=== PATIENT | male | born 1955 | race Caucasian/White ===

== ENCOUNTER 2020-06-06 11:51 | Emergency (ER) | payer OTHER ==
[~2020-06-06] VITALS: Ht 180.3 cm; Wt 79.4 kg
[2020-06-06 15:03] VITALS: BP 152/100
== END 2020-06-06 15:14 | disposition home or self-care (01) ==
LOC: ER 11:51 → EDBD 11:51 → ER 15:14
DX: S16.1XXA Strain of muscle, fascia and tendon at neck level, initial encounter (principal); S40.021A Contusion of right upper arm, initial encounter; F17.210 Nicotine dependence, cigarettes, uncomplicated; M50.321 Other cervical disc degeneration at C4-C5 level; V43.52XA Car driver injured in collision with other type car in traffic accident, initial encounter; Y93.89 Activity, other specified; Y92.488 Other paved roadways as the place of occurrence of the external cause; Y99.8 Other external cause status
CPT/HCPCS: 72040; 73080

== ENCOUNTER 2021-12-11 19:54 | Inpatient (IN) | payer MEDICARE ==
[~2021-12-11] VITALS: Ht 172.7 cm; Wt 67.1 kg
[2021-12-11] MEDS ORDERED: NITROGLYCERIN 0.4 MG SL TAB SL PRN (21:30)
[2021-12-11] MEDS ORDERED: MORPHINE SULFATE INJ 2 MG/ml SYRG IV PRN (21:30)
[2021-12-11] MEDS ORDERED: SOD CHL 0.45% 1,000 ML IV SCH (21:45)
[2021-12-11] MEDS ORDERED: KETOROLAC TROMETH 30 MG/ML 1ML VIAL IV ONE (22:15)
[2021-12-11] MEDS: KETOROLAC TROMETH 30 MG/ML 1ML VIAL IV SCH (22:15)
[2021-12-11] MEDS ORDERED: VANCOMYCIN PER PHARMACY 0 MG IV SCH (22:15)
[2021-12-11] MEDS: SOD CHL 0.45% 1,000 ML IV SCH (22:15)
[2021-12-11] MEDS ORDERED: HYDROmorphone HCL 2 MG/ML VL/or syr IV PRN (22:15)
[2021-12-11 22:39] LABS: Basophils # (auto) 0.1 10 ^3/uL (0-0.2); Basophils % (auto) 0.6 % (0.0-2.0); Eosinophils # (auto) 0.2 10 ^3/uL (0-0.8); Eosinophils % (auto) 1.7 % (0.0-7.0); Hemoglobin 12.4 g/dL (13.5-17.5); Lymphocytes # (auto) 1.8 10 ^3/uL (0.4-5.4); Mean Corpuscular Hemoglobin 29.5 pg (28.0-32.0); Mean Corpuscular Hgb Conc. 33.4 g/dL (32.0-36.0); Mean Corpuscular Volume 88.3 fL (80.0-100.0); Monocytes # (auto) 0.7 10 ^3/uL (0-1.3); Monocytes % (auto) 8.1 % (0.0-12.0); Neutrophils # (auto) 6.2 10 ^3/uL (1.6-8.6); Neutrophils % (auto) 69.6 % (37.0-80.0); Red Blood Cells 4.19 10^6/uL (4.5-5.90); Red Cell Distribution Width 13.4 % (11.8-14.3)
[2021-12-11] MEDS ORDERED: VANCOMYCIN 1GM/250ML 250 ML IV ONE (22:45)
[2021-12-11 22:52] LABS: INR 0.97 (0.9-1.15); Partial Thromboplastin Time 28.5 sec (24.6-33.4)
[2021-12-11] MEDS ORDERED: ROSU1TAB15 PO (22:57)
[2021-12-11] MEDS ORDERED: TRAZ50TA2 PO (22:57)
[2021-12-11] MEDS ORDERED: ALBU108A5 PO (22:57)
[2021-12-11] MEDS ORDERED: SILV1CRE82 (22:57)
[2021-12-11] MEDS ORDERED: LISI-275 PO (22:57)
[2021-12-11] MEDS ORDERED: MELO1TAB56 PO (22:57)
[2021-12-11] MEDS ORDERED: BUPR-60 PO (22:57)
[2021-12-11] MEDS ORDERED: FOLI1TAB6 PO (22:57)
[2021-12-11] MEDS ORDERED: ASPI-325 PO (22:57)
[2021-12-11] MEDS ORDERED: DIAZ5TAB PO (22:57)
[2021-12-11] MEDS ORDERED: HYDR2TAB2 PO (22:57)
[2021-12-11 22:58] LABS: Albumin 3.1 g/dL (3.4-5.0); Calcium 8.4 mg/dL (8.5-10.1); Potassium 4.4 mmol/L (3.5-5.1)
[2021-12-11 23:07] LABS: BUN/Creatinine Ratio 16.4; Bilirubin, Total 0.3 mg/dL (0.2-1.0); CRP High Sensitivity 4.12 mg/dL (< 0.3); Total Protein 6.5 g/dL (6.4-8.2)
[2021-12-11] MEDS ORDERED: ALBUTEROL SULF HFA 90MCG INH 200DOSE IN PRN (23:30)
[2021-12-12] MEDS ORDERED: ALBUTEROL SULF 2.5 MG/0.5ML(0.5%) NEB SOLN NEB PRN (02:15)
[2021-12-12 05:00] VITALS: BP 99/61
[2021-12-12] MEDS: KETOROLAC TROMETH 30 MG/ML 1ML VIAL IV SCH ×4 (05:41→22:15)
[2021-12-12 07:06] LABS: Urine Bacteria NONE SEEN /hpf (None Seen); Urine Blood Negative /uL (Negative); Urine Hyaline Cast FEW /lpf (0 - 2); Urine Mucus FEW (None Seen); Urine Specific Gravity 1.038 (1.001-1.035); Urine WBC 3 /hpf (0 - 3)
[2021-12-12] MEDS: ASPirin-EC 81 mg tab PO SCH (09:40)
[2021-12-12] MEDS: diazePAM 5 MG TAB PO SCH ×2 (09:40→21:15)
[2021-12-12] MEDS: LISINOPRIL 10 MG TAB PO SCH (09:40)
[2021-12-12] MEDS ORDERED: BUPROPION HCL SR 150 MG TABLET PO SCH (10:00)
[2021-12-12 10:25] LABS: Albumin 2.8 g/dL (3.4-5.0); BUN/Creatinine Ratio 18.3; Calcium 8.5 mg/dL (8.5-10.1); Potassium 4.5 mmol/L (3.5-5.1)
[2021-12-12 13:09] VITALS: BP 116/79
[2021-12-12] MEDS: SOD CHL 0.45% 1,000 ML IV SCH ×2 (15:12→17:46)
[2021-12-12 17:00] VITALS: BP 111/66
[2021-12-12] MEDS: VANCOMYCIN 1GM/250ML 250 ML IV SCH (17:07)
[2021-12-12] MEDS: traZODone HCL 50 MG TAB PO SCH (21:14)
[2021-12-12 22:00] VITALS: BP 112/46
[2021-12-13] MEDS: KETOROLAC TROMETH 30 MG/ML 1ML VIAL IV SCH ×4 (04:16→22:28)
[2021-12-13 05:00] VITALS: BP 144/78
[2021-12-13 09:00] VITALS: BP 112/68
[2021-12-13] MEDS: diazePAM 5 MG TAB PO SCH ×2 (09:53→22:25)
[2021-12-13] MEDS: ASPirin-EC 81 mg tab PO SCH (09:53)
[2021-12-13] MEDS: LISINOPRIL 10 MG TAB PO SCH (09:54)
[2021-12-13] MEDS: buPROPion HCL 75 MG TAB PO SCH ×2 (10:30→18:46)
[2021-12-13] MEDS: VANCOMYCIN 1GM/250ML 250 ML IV SCH (12:36)
[2021-12-13 13:00] VITALS: BP 115/56
[2021-12-13] MEDS: SOD CHL 0.45% 1,000 ML IV SCH (14:15)
[2021-12-13 17:00] VITALS: BP 115/61
[2021-12-13 22:00] VITALS: BP 104/54
[2021-12-13] MEDS: traZODone HCL 50 MG TAB PO SCH (22:25)
[2021-12-14 05:00] VITALS: BP 138/80
[2021-12-14 05:19] LABS: Basophils # (auto) 0 10 ^3/uL (0-0.2); Basophils % (auto) 0.3 % (0.0-2.0); Eosinophils # (auto) 0.1 10 ^3/uL (0-0.8); Eosinophils % (auto) 1.9 % (0.0-7.0); Hematocrit 31.8 % (41.0-53.0); Hemoglobin 10.6 g/dL (13.5-17.5); Lymphocytes # (auto) 1.5 10 ^3/uL (0.4-5.4); Lymphocytes % (auto) 19.1 % (10.0-50.0); Mean Corpuscular Hgb Conc. 33.4 g/dL (32.0-36.0); Mean Corpuscular Volume 89.6 fL (80.0-100.0); Monocytes # (auto) 0.6 10 ^3/uL (0-1.3); Monocytes % (auto) 7.8 % (0.0-12.0); Neutrophils # (auto) 5.5 10 ^3/uL (1.6-8.6); Neutrophils % (auto) 70.9 % (37.0-80.0); Red Blood Cells 3.55 10^6/uL (4.5-5.90); White Blood Cell 7.8 10^3/uL (4.4-10.8)
[2021-12-14 05:26] LABS: Potassium 4.6 mmol/L (3.5-5.1)
[2021-12-14 05:34] LABS: Albumin 2.6 g/dL (3.4-5.0); Bilirubin, Total 0.3 mg/dL (0.2-1.0); Calcium 8.1 mg/dL (8.5-10.1); Total Protein 5.5 g/dL (6.4-8.2)
[2021-12-14] MEDS: KETOROLAC TROMETH 30 MG/ML 1ML VIAL IV SCH ×4 (05:59→21:24)
[2021-12-14] MEDS: VANCOMYCIN 1GM/250ML 250 ML IV SCH ×2 (06:06→21:36)
[2021-12-14] MEDS: SOD CHL 0.45% 1,000 ML IV SCH ×2 (06:30→16:58)
[2021-12-14] MEDS: buPROPion HCL 75 MG TAB PO SCH ×2 (07:04→18:35)
[2021-12-14 08:32] VITALS: BP 120/69
[2021-12-14] MEDS: ASPirin-EC 81 mg tab PO SCH (09:46)
[2021-12-14] MEDS: diazePAM 5 MG TAB PO SCH ×2 (09:46→21:20)
[2021-12-14] MEDS: LISINOPRIL 10 MG TAB PO SCH (09:47)
[2021-12-14] MEDS ORDERED: PANTOPRAZOLE 40 MG/10 ML VIAL INJ IV STA (13:41)
[2021-12-14] MEDS ORDERED: ONDANSETRON HCL 4 MG/2 ML VIAL IV PRN (13:45)
[2021-12-14] MEDS ORDERED: ALUM & MAG HYDROX-SIMETH LIQ(MAALOX) 30 ML GT PRN (13:45)
[2021-12-14 14:06] VITALS: BP 117/72
[2021-12-14 16:38] VITALS: BP 134/81
[2021-12-14] MEDS: traZODone HCL 50 MG TAB PO SCH (21:19)
[2021-12-14] MEDS: PANTOPRAZOLE 40 MG/10 ML VIAL INJ IV SCH (21:25)
[2021-12-14 22:00] VITALS: BP 93/54
[2021-12-15] VITALS (7 sets, daily range): BP systolic 93–126; BP diastolic 54–77
[2021-12-15] MEDS: KETOROLAC TROMETH 30 MG/ML 1ML VIAL IV SCH ×4 (04:14→21:40)
[2021-12-15 05:34] LABS: Basophils # (auto) 0 10 ^3/uL (0-0.2); Basophils % (auto) 0.7 % (0.0-2.0); Eosinophils # (auto) 0.1 10 ^3/uL (0-0.8); Eosinophils % (auto) 2.3 % (0.0-7.0); Hematocrit 28.4 % (41.0-53.0); Hemoglobin 9.7 g/dL (13.5-17.5); Lymphocytes # (auto) 1.6 10 ^3/uL (0.4-5.4); Lymphocytes % (auto) 25.6 % (10.0-50.0); Mean Corpuscular Hemoglobin 30.2 pg (28.0-32.0); Mean Corpuscular Hgb Conc. 34.1 g/dL (32.0-36.0); Mean Corpuscular Volume 88.6 fL (80.0-100.0); Monocytes # (auto) 0.5 10 ^3/uL (0-1.3); Monocytes % (auto) 8.7 % (0.0-12.0); Neutrophils # (auto) 3.8 10 ^3/uL (1.6-8.6); Neutrophils % (auto) 62.7 % (37.0-80.0); Red Blood Cells 3.21 10^6/uL (4.5-5.90); White Blood Cell 6.1 10^3/uL (4.4-10.8)
[2021-12-15] MEDS: buPROPion HCL 75 MG TAB PO SCH ×2 (06:56→18:34)
[2021-12-15 07:58] LABS: Albumin 2.8 g/dL (3.4-5.0); Calcium 8.1 mg/dL (8.5-10.1); Potassium 4.7 mmol/L (3.5-5.1)
[2021-12-15 08:01] LABS: BUN/Creatinine Ratio 18.4; Bilirubin, Total 0.3 mg/dL (0.2-1.0); Total Protein 5.6 g/dL (6.4-8.2)
[2021-12-15] MEDS: SOD CHL 0.45% 1,000 ML IV SCH ×2 (08:09→18:34)
[2021-12-15] MEDS: PANTOPRAZOLE 40 MG/10 ML VIAL INJ IV SCH ×2 (09:33→21:37)
[2021-12-15] MEDS: diazePAM 5 MG TAB PO SCH ×2 (09:33→21:39)
[2021-12-15] MEDS: ASPirin-EC 81 mg tab PO SCH (09:33)
[2021-12-15] MEDS: CEFTRIAXONE SODIUM 2 GM in D5W 5% 50 ML IV SCH (09:33)
[2021-12-15] MEDS: LISINOPRIL 10 MG TAB PO SCH (09:34)
[2021-12-15] MEDS ORDERED: MIDAZOLAM HCL 2MG/2ML 2ml VIAL (1mg/ml) ONE (09:51)
[2021-12-15] MEDS ORDERED: MEPERIDINE HCL (25 MG/ML) 1ML VIAL ONE (09:51)
[2021-12-15] MEDS ORDERED: fentaNYL CITRATE 100 MCG/2 ML VL ONE (09:51)
[2021-12-15] MEDS ORDERED: BUPIVACAINE W/ EPINEPH 0.5% INJ 50ML MDV IJ ONE (10:20)
[2021-12-15] MEDS ORDERED: ONDANSETRON HCL 4 MG/2 ML VIAL IV PRN (10:30)
[2021-12-15] MEDS ORDERED: HYDROmorphone HCL 2 MG/ML VL/or syr IV PRN (10:30)
[2021-12-15] MEDS ORDERED: MIDAZOLAM HCL 2MG/2ML 2ml VIAL (1mg/ml) IV PRN (10:30)
[2021-12-15] MEDS ORDERED: LABETALOL HCL 5 MG/ML 4ML SYRINGE IV PRN (10:30)
[2021-12-15] MEDS ORDERED: hydrALAZINE HCL 20 MG/ML VL IV PRN (10:30)
[2021-12-15] MEDS ORDERED: ePHEDrine SULFATE 50 MG/ML AMP IV PRN (10:30)
[2021-12-15] MEDS ORDERED: MORPHINE SULFATE 4 MG/ML SYR/VIAL IV PRN (10:30)
[2021-12-15] MEDS ORDERED: LACTATED RINGER'S 1,000 ML IV SCH (11:15)
[2021-12-15] MEDS ORDERED: DexAMETHasone SOD PHOS 10MG/1ML VIAL INJ ONE (11:17)
[2021-12-15] MEDS ORDERED: PROPOFOL 10 MG/ML 20 ML IV ONE (11:17)
[2021-12-15] MEDS: VANCOMYCIN 1GM/250ML 250 ML IV SCH (14:27)
[2021-12-15] MEDS: traZODone HCL 50 MG TAB PO SCH (21:38)
[2021-12-16] MEDS: HYDROmorphone HCL 2 MG/ML VL/or syr IV PRN ×2 (01:28→22:36)
[2021-12-16] MEDS: KETOROLAC TROMETH 30 MG/ML 1ML VIAL IV SCH ×3 (04:26→17:24)
[2021-12-16 05:00] VITALS: BP 106/63
[2021-12-16] MEDS: VANCOMYCIN 1GM/250ML 250 ML IV SCH ×2 (06:07→18:35)
[2021-12-16] MEDS: buPROPion HCL 75 MG TAB PO SCH ×2 (06:56→18:30)
[2021-12-16 09:00] VITALS: BP 107/68
[2021-12-16] MEDS: CEFTRIAXONE SODIUM 2 GM in D5W 5% 50 ML IV SCH (10:34)
[2021-12-16] MEDS: diazePAM 5 MG TAB PO SCH ×2 (10:35→21:02)
[2021-12-16] MEDS: ASPirin-EC 81 mg tab PO SCH (10:35)
[2021-12-16] MEDS: SOD CHL 0.45% 1,000 ML IV SCH ×2 (10:36→20:58)
[2021-12-16] MEDS: PANTOPRAZOLE 40 MG/10 ML VIAL INJ IV SCH (10:36)
[2021-12-16] MEDS: LISINOPRIL 10 MG TAB PO SCH (10:37)
[2021-12-16] MEDS ORDERED: BUPR-60 PO (12:11)
[2021-12-16 12:35] VITALS: BP 107/57
[2021-12-16 15:18] LABS: INR 1.04 (0.9-1.15); Partial Thromboplastin Time 22.3 sec (24.6-33.4)
[2021-12-16] MEDS ORDERED: LIDOCAINE 1% (LOCAL ANESTH.) PF 5ml SDV ID ONE (16:45)
[2021-12-16 17:00] VITALS: BP 118/51
[2021-12-16] MEDS: traZODone HCL 50 MG TAB PO SCH (21:02)
[2021-12-16] MEDS: PANTOPRAZOLE 40 MG TAB PO SCH (21:02)
[2021-12-16] MEDS: SODIUM CHLOR 0.9% PF (SALINE LOCK) 10ML VIAL/SYR IV SCH (21:03)
[2021-12-16 22:00] VITALS: BP 128/63
[2021-12-17] MEDS: HYDROmorphone HCL 2 MG/ML VL/or syr IV PRN ×3 (03:04→20:20)
[2021-12-17 04:52] VITALS: BP 107/68
[2021-12-17 05:00] VITALS: BP 116/35
[2021-12-17] MEDS: VANCOMYCIN 1GM/250ML 250 ML IV SCH ×2 (05:24→19:02)
[2021-12-17] MEDS: buPROPion HCL 75 MG TAB PO SCH ×2 (06:16→19:02)
[2021-12-17 09:14] VITALS: BP 149/80
[2021-12-17] MEDS: SODIUM CHLOR 0.9% PF (SALINE LOCK) 10ML VIAL/SYR IV SCH ×2 (10:00→21:53)
[2021-12-17] MEDS: CEFTRIAXONE SODIUM 2 GM in D5W 5% 50 ML IV SCH (11:27)
[2021-12-17] MEDS: LISINOPRIL 10 MG TAB PO SCH (11:28)
[2021-12-17] MEDS: PANTOPRAZOLE 40 MG TAB PO SCH ×2 (11:28→21:53)
[2021-12-17] MEDS: diazePAM 5 MG TAB PO SCH ×2 (11:28→21:53)
[2021-12-17] MEDS: ASPirin-EC 81 mg tab PO SCH (11:29)
[2021-12-17] MEDS: SOD CHL 0.45% 1,000 ML IV SCH (11:35)
[2021-12-17 13:28] VITALS: BP 134/85
[2021-12-17 16:22] VITALS: BP 100/56
[2021-12-17] MEDS: traZODone HCL 50 MG TAB PO SCH (21:53)
[2021-12-17 22:00] VITALS: BP 132/87
[2021-12-18] MEDS: SOD CHL 0.45% 1,000 ML IV SCH ×2 (00:50→02:32)
[2021-12-18] MEDS: HYDROmorphone HCL 2 MG/ML VL/or syr IV PRN ×3 (01:16→10:57)
[2021-12-18 05:00] VITALS: BP 118/63
[2021-12-18] MEDS: buPROPion HCL 75 MG TAB PO SCH (06:13)
[2021-12-18 09:00] VITALS: BP 143/92
[2021-12-18] MEDS: CEFTRIAXONE SODIUM 2 GM in D5W 5% 50 ML IV SCH (10:54)
[2021-12-18] MEDS: ASPirin-EC 81 mg tab PO SCH (10:55)
[2021-12-18] MEDS: diazePAM 5 MG TAB PO SCH (10:55)
[2021-12-18] MEDS: SODIUM CHLOR 0.9% PF (SALINE LOCK) 10ML VIAL/SYR IV SCH (10:55)
[2021-12-18] MEDS: PANTOPRAZOLE 40 MG TAB PO SCH (10:55)
[2021-12-18] MEDS: LISINOPRIL 10 MG TAB PO SCH (10:56)
[2021-12-18 13:00] VITALS: BP 133/71
== END 2021-12-18 14:15 | disposition home or self-care (01) | DRG 464 ==
LOC: WEST WING 19:54 → UNDOADMIN 19:54 → WEST WING 21:32
PROVIDERS: ADMIT Specialist; ATTEND Specialist
PROC: 0JBN0ZZ Excision of Right Lower Leg Subcutaneous Tissue and Fascia, Open Approach (ICD-10-PCS; principal; 2021-12-15 10:30)
PROC: 02HV33Z Insertion of Infusion Device into Superior Vena Cava, Percutaneous Approach (ICD-10-PCS; 2021-12-16)
DX: T87.43 Infection of amputation stump, right lower extremity (principal); L02.415 Cutaneous abscess of right lower limb; N17.9 Acute kidney failure, unspecified; M86.8X6 Other osteomyelitis, lower leg; B95.8 Unspecified staphylococcus as the cause of diseases classified elsewhere; I12.9 Hypertensive chronic kidney disease with stage 1 through stage 4 chronic kidney disease, or unspecified chronic kidney disease; N18.30 Chronic kidney disease, stage 3 unspecified; Z20.822 Contact with and (suspected) exposure to COVID-19; E77.8 Other disorders of glycoprotein metabolism; E86.1 Hypovolemia; E88.09 Other disorders of plasma-protein metabolism, not elsewhere classified; I73.9 Peripheral vascular disease, unspecified
CPT/HCPCS: 36415; 36569; 71045; 73700; 76881; 80053; 80069; 80202; 81001; 85025; 85610; 85652; 85730; 86141; 87040; 87070; 87075; 87077; 87186; 87205; C9113; G0378; J0696; J1100; J1885; J2250; J2704; J7060